=== PATIENT | female | born 1990 | race Caucasian/White ===

== ENCOUNTER 2016-11-20 22:30 | Emergency (ER) | payer OTHER ==
[2016-11-20 22:50] VITALS: BP 135/89; PULSE 104; RESP 18; TEMP 98.8; O2SAT 96
--- NOTE | 2016-11-20 23:03 | UCPHY ---
H & P Time Seen by Provider: 11/20/16 22:48 Patient Type: Established HPI/ROS: CHIEF COMPLAINT: cough HISTORY OF PRESENT ILLNESS: Patient is a 18-year-old female with a history of asthma who presents to the emergency department with worsening cough. Her symptoms started a week ago Sunday. His progressively worsened. Her cough is nonproductive. She has been using her albuterol inhaler as well as her Advair. She states her symptoms do slightly improve after using the albuterol. She denies fever but has subjective chills. No chest pain or shortness of breath. No nausea or vomiting. No leg pain or swelling. REVIEW OF SYSTEMS: My complete review of systems is negative except as mentioned in the HPI. Past Medical/Surgical History: Includes asthma Smoking Status: Never smoked Physical Exam: Vitals noted GENERAL: No acute distress, alert. HEENT: Eyes normal to inspection, normal pharynx, no signs of dehydration. NECK: No thyromegaly, no lymphadenopathy, supple. RESPIRATORY: Clear to auscultation bilaterally, no rales, rhonchi or wheezing. Occasional cough. CVS: Regular rate and rhythm, no rubs, murmurs, or gallops. ABDOMEN: Soft, nontender, nondistended, no organomegaly. BACK: Normal to inspection, no CVA tenderness. SKIN: Normal color, no rash, warm, dry. No pallor. EXTREMITIES: No pedal edema, no calf tenderness, no Homans sign or cords, no joint swelling. NEURO/PSYCH: Alert and oriented, normal mood and affect. Constitutional: Initial Vital Signs Temperature (C) 37.1 C 11/20/16 22:48 Heart Rate 104 H 11/20/16 22:48 Respiratory Rate 18 11/20/16 22:48 Blood Pressure 135/89 H 11/20/16 22:48 O2 Sat (%) 96 11/20/16 22:48 O2 Delivery Mode Room Air Allergies/Adverse Reactions: Sulfa (Sulfonamide Antibiotics) Allergy (Severe, Verified 04/21/16 19:38) FACIAL AND LIP SWELLING cefaclor [From Ceclor] Allergy (Intermediate, Verified 04/21/16 19:38) Hives Milk Containing Products [dairy] Allergy (Verified 04/21/16 19:38) Home Medications: Medication Instructions Recorded Levothyroxine [Synthroid 88 mcg 10/14/14 (*)] Azithromycin 250 mg PO DAILY #4 tablet 11/20/16 Fluticasone/Salmeter 100/50Mcg 11/20/16 [Advair 100/50 (*)] Hydrocodone/APAP 5/325 [Wallis 1 - 2 tab PO Q4 #13 tab 11/20/16 5/325 (RX)] Singulair 11/20/16 predniSONE 20 mg PO DAILY 4 Days 11/20/16 Medical Decision Making ED Course/Re-evaluation: I discussed possible etiologies with the patient. At this time based on her presentation I do not feel she needs an x-ray. Patient has a history of asthma and has had significant cough. Because of this she will be given azithromycin 500 mg orally. She was given a prescription upon discharge. The patient was also given prednisone 60 mg orally as well as prescription on discharge. The patient was given Wallis take-home pack for cough. She was given a prescription for this as well for ongoing cough. She will continue her albuterol and Advair. Differential Diagnosis: My differential includes but is not limited to asthma, bronchitis, pneumonia, bacteremia, sepsis, dehydration Departure - Departure Disposition: Home, Routine, Self-Care Clinical Impression: Bronchitis Asthma Qualifiers: Asthma severity: mild intermittent Asthma complication type: uncomplicated Qualifier Code: (J45.20) Mild intermittent asthma, uncomplicated Condition: Good Instructions: Acute Bronchitis (ED) Additional Instructions: Return with increasing cough, shortness of breath, persistent fever or any other concerns. Continue to take your albuterol and Advair. Take your prescriptions as directed. Referrals: Linda Salgado MD [Medical Doctor] - 5-7 days, if not improved Prescriptions: Hydrocodone/APAP 5/325 [Wallis 5/325 (RX)] 1 - 2 tab PO Q4 #13 tab predniSONE 20 mg PO DAILY 4 Days - PQRS PQRS Measurement: NA
[2016-11-20] MEDS ORDERED: HYDROCOD/APAP 5/325 PREPACK#6 BTL TAKEHOME ONE (23:04)
[2016-11-20] MEDS ORDERED: predniSONE 20 MG TAB PO ONE (23:04)
[2016-11-20] MEDS ORDERED: AZITHROMYCIN 250 MG TAB PO ONE (23:04)
== END 2016-11-20 23:16 | disposition home or self-care (01) ==
LOC: CED 22:30
DX: J45.20 Mild intermittent asthma, uncomplicated (principal); Z79.51 Long term (current) use of inhaled steroids
CPT/HCPCS: 99214-PO; G0463-PO